=== PATIENT | male | born 1955 | race Caucasian/White ===

== ENCOUNTER 2018-03-30 13:47 | Emergency (ER) | payer BC, MEDICAID, SELFPAY ==
[~2018-03-30] VITALS: Ht 182.9 cm; Wt 79.5 kg
[2018-03-30] MEDS ORDERED: RAMI5CAP57 PO (13:59)
[2018-03-30] MEDS ORDERED: ZOLP10TA PO (13:59)
[2018-03-30] MEDS ORDERED: HYDROCHLOROTH12.5 MG PO (13:59)
[2018-03-30] MEDS ORDERED: GABA300C10 PO (14:00)
[2018-03-30] MEDS ORDERED: DIPH25CA61 PO (14:00)
[2018-03-30] MEDS ORDERED: MELO15TA24 PO (14:01)
[2018-03-30 14:43] LABS: BASOPHILS # (AUTO) 0.05 x10^3/uL (0-0.1); BASOPHILS % (AUTO) 1 % (0-1); EOSINOPHILS # (AUTO) 0.24 x10^3/uL (0-0.4); EOSINOPHILS % (AUTO) 3 % (1-7); LYMPHOCYTES # (AUTO) 1.59 x10^3/uL (1-3.4); LYMPHOCYTES % (AUTO) 16 % (22-44); MD NO; MEAN CORPUSCULAR HEMOGLOBIN 30.9 pg (27.5-34.5); MEAN CORPUSCULAR HGB CONC 34.2 g/dL (33.2-36.2); MEAN CORPUSCULAR VOLUME 90.3 fL (81-97); MEAN PLATELET VOLUME 8.4 fL (7.4-10.4); MONOCYTES # (AUTO) 0.91 x10^3/uL (0.2-0.8); MONOCYTES % (AUTO) 9 % (2-9); NEUTROPHILS # (AUTO) 6.88 x10^3/uL (1.8-6.8); NEUTROPHILS % (AUTO) 71 % (42-75); PLATELET COUNT 312 x10^3/uL (130-400); RED BLOOD COUNT 5.29 x10^6/uL (4.38-5.82); RED CELL DISTRIBUTION WIDTH 13.8 % (9.4-14.8)
[2018-03-30 14:45] LABS: INTERNATIONAL NORMALIZED RATIO 1.01 (0.93-1.1); PROTHROMBIN TIME 10.7 Seconds (9.6-11.5)
[2018-03-30 14:46] LABS: ALBUMIN 4.4 g/dL (3.4-5.0); ANION GAP 6 mmol/L (5-15); CHLORIDE 106 mmol/L (98-107)
[2018-03-30 14:50] LABS: ALANINE AMINOTRANSFERASE 34 U/L (12-78); ALKALINE PHOSPHATASE 87 U/L (45-117); BILIRUBIN,TOTAL 0.4 mg/dL (0.2-1.0); TOTAL PROTEIN 7.7 g/dL (6.4-8.2)
[2018-03-30 15:35] VITALS: BP 156/77
== END 2018-03-30 15:57 | disposition home or self-care (01) ==
LOC: ED 15:40
DX: R21 Rash and other nonspecific skin eruption (principal); I49.3 Ventricular premature depolarization
CPT/HCPCS: 36415; 71045; 80053; 83735; 85025; 85610; 85730; 93005; 99284

== ENCOUNTER 2018-06-11 22:44 | Inpatient (IN) | payer MEDICAID ==
[~2018-06-11] VITALS: Ht 182.9 cm; Wt 82.7 kg
[~2018-06-11 22:44] MED LIST: DIPH25CA61 PO; ESCI20TA10 PO; GABA300C10 PO; HYDROCHLOROTH12.5 MG PO; MELO15TA24 PO; METO25TA35 PO; MORPHINE PO; ONDA4TAB7 PO; RAMI5CAP57 PO; TRAZ-137 PO; ZOLP10TA PO
[2018-06-11] MEDS ORDERED: NITROGLYCERIN 0.4 MG BOTTLE (25 TABS) SL PRN (23:00)
[2018-06-11] MEDS ORDERED: ONDANSETRON 2MG/ML, 2ML IVPush ONE (23:00)
--- NOTE | 2018-06-11 23:05 | NUR ---
bib remsa with c/o on and off substernal chest pressure, nausea, dizziness, poor appetite and diarreha. pt wearing holter monitor x 10 days. per remsa ekg shows pt in and out of trigeminy. monitors applied, siderails up x2, call light within reach.
[2018-06-11] MEDS ORDERED: ONDANSETRON 2MG/ML, 2ML ONE (23:12)
[2018-06-11] MEDS ORDERED: NITROGLYCERIN SINGLE TAB 0.4 MG SL ONE (23:12)
[2018-06-11 23:15] LABS: BASOPHILS # (AUTO) 0.01 x10^3/uL (0-0.1); BASOPHILS % (AUTO) 0 % (0-1); EOSINOPHILS # (AUTO) 0.03 x10^3/uL (0-0.4); EOSINOPHILS % (AUTO) 0 % (1-7); LYMPHOCYTES # (AUTO) 0.95 x10^3/uL (1-3.4); LYMPHOCYTES % (AUTO) 11 % (22-44); MD NO; MEAN CORPUSCULAR HEMOGLOBIN 30.4 pg (27.5-34.5); MEAN CORPUSCULAR HGB CONC 34.7 g/dL (33.2-36.2); MEAN CORPUSCULAR VOLUME 87.4 fL (81-97); MONOCYTES # (AUTO) 0.55 x10^3/uL (0.2-0.8); MONOCYTES % (AUTO) 6 % (2-9); NEUTROPHILS # (AUTO) 7.08 x10^3/uL (1.8-6.8); NEUTROPHILS % (AUTO) 82 % (42-75); PLATELET COUNT 197 x10^3/uL (130-400); RED BLOOD COUNT 5.23 x10^6/uL (4.38-5.82); RED CELL DISTRIBUTION WIDTH 12.4 % (9.4-14.8)
[2018-06-11] MEDS ORDERED: ROSU5TAB PO (23:26)
[2018-06-11 23:27] LABS: ALANINE AMINOTRANSFERASE 24 U/L (12-78); ALBUMIN 3.5 g/dL (3.4-5.0); ANION GAP 8 mmol/L (5-15); CALCIUM 8.5 mg/dL (8.5-10.1); CHLORIDE 106 mmol/L (98-107); CREATININE 0.79 mg/dL (0.7-1.3)
[2018-06-11 23:28] LABS: PROTHROMBIN TIME 10.6 Seconds (9.6-11.5)
[2018-06-11 23:32] LABS: ALKALINE PHOSPHATASE 85 U/L (45-117); BILIRUBIN,TOTAL 0.7 mg/dL (0.2-1.0); TOTAL PROTEIN 7.2 g/dL (6.4-8.2); TROPONIN I < 0.015 ng/mL (0.000-0.045)
--- NOTE | 2018-06-11 23:49 | NUR ---
PT RESTING CALMLY, STATED NAUSEA HAS IMPROVED, DENIES CP AT THIS TIME, MONITORS IN PLACE, CALL LIGHT WITHIN REACH. AWAITING LAB AND XRAY RESULT
--- NOTE | 2018-06-12 00:50 | NUR ---
REPORT CALLED TO THE FLOOR AND PT RTG.
[2018-06-12 01:20] VITALS: BP 177/74
[2018-06-12] MEDS ORDERED: hydrALAzine 20 MG/ML, 1ML IV ONE (01:30)
[2018-06-12] MEDS: ONDANSETRON 2MG/ML, 2ML IVPush PRN ×4 (01:45→19:32)
[2018-06-12] MEDS ORDERED: PANTOPRAZOLE 40 MG IV IVPush ONE (01:47)
[2018-06-12 02:00] VITALS: BP 132/56
[2018-06-12] MEDS ORDERED: IBUPROFEN 600 MG TABLET PO PRN (02:00)
[2018-06-12] MEDS ORDERED: ENALAPRILAT 1.25 MG/ML, 2ML IVPush PRN (02:00)
[2018-06-12] MEDS ORDERED: GABAPENTIN 300 MG CAPSULE PO PRN (02:00)
[2018-06-12] MEDS ORDERED: METOCLOPRAMIDE 5 MG/ML, 2ML IVPush PRN (02:00)
[2018-06-12] MEDS ORDERED: ACETAMINOPHEN 325 MG TABLET PO PRN (02:00)
[2018-06-12] MEDS ORDERED: TRAZODONE 50MG TABLET PO PRN (02:00)
[2018-06-12] MEDS ORDERED: ONDANSETRON 2MG/ML, 2ML IVPush PRN (02:00)
[2018-06-12] MEDS: morphine SULFATE 10 MG/ML, 1ML IVPush PRN ×2 (02:18→19:31)
[2018-06-12] MEDS: SODIUM CHLORIDE 0.9% 1,000 ML IV SCH ×2 (02:34→11:30)
[2018-06-12 05:39] LABS: TROPONIN I < 0.015 ng/mL (0.000-0.045)
[2018-06-12 06:55] VITALS: BP 147/61
[2018-06-12] MEDS: ATORVASTATIN 10 MG TABLET PO SCH (09:00)
[2018-06-12] MEDS: HYDROCHLOROTHIAZIDE 12.5 MG CAPSULE PO SCH (09:00)
[2018-06-12] MEDS: RAMIPRIL 2.5 MG CAPSULE PO SCH (09:00)
[2018-06-12] MEDS ORDERED: ESCITALOPRAM OXALATE PO SCH (09:00)
[2018-06-12] MEDS: PANTOPRAZOLE 40 MG IV IVPush SCH (09:29)
[2018-06-12 14:10] VITALS: BP 154/83
[2018-06-12] MEDS ORDERED: PROCHLORPERAZINE 5 MG/ML, 2ML IM PRN (17:00)
[2018-06-12] MEDS: POTASSIUM CHLORIDE 20 MEQ in D5%-0.45% NACL 1,000 ML IV SCH (17:17)
[2018-06-12 18:53] VITALS: BP 128/69
[2018-06-12] MEDS ORDERED: PROCHLORPERAZINE 5 MG/ML, 2ML IV PRN (20:00)
[2018-06-13] MEDS: POTASSIUM CHLORIDE 20 MEQ in D5%-0.45% NACL 1,000 ML IV SCH (02:29)
[2018-06-13 04:24] VITALS: BP 151/79
[2018-06-13 07:43] VITALS: BP 130/74
[2018-06-13 08:00] LABS: BASOPHILS # (AUTO) 0.04 x10^3/uL (0-0.1); BASOPHILS % (AUTO) 0 % (0-1); EOSINOPHILS # (AUTO) 0.09 x10^3/uL (0-0.4); EOSINOPHILS % (AUTO) 1 % (1-7); LYMPHOCYTES # (AUTO) 1.55 x10^3/uL (1-3.4); LYMPHOCYTES % (AUTO) 15 % (22-44); MD NO; MEAN CORPUSCULAR HEMOGLOBIN 29.8 pg (27.5-34.5); MEAN CORPUSCULAR HGB CONC 33.5 g/dL (33.2-36.2); MEAN CORPUSCULAR VOLUME 88.9 fL (81-97); MEAN PLATELET VOLUME 9.2 fL (7.4-10.4); MONOCYTES # (AUTO) 1.06 x10^3/uL (0.2-0.8); MONOCYTES % (AUTO) 11 % (2-9); NEUTROPHILS # (AUTO) 7.36 x10^3/uL (1.8-6.8); NEUTROPHILS % (AUTO) 73 % (42-75); PLATELET COUNT 198 x10^3/uL (130-400); RED BLOOD COUNT 5.18 x10^6/uL (4.38-5.82); RED CELL DISTRIBUTION WIDTH 12.7 % (9.4-14.8)
[2018-06-13 08:10] LABS: ANION GAP 4 mmol/L (5-15); CALCIUM 8.3 mg/dL (8.5-10.1); CHLORIDE 110 mmol/L (98-107)
[2018-06-13] MEDS: PANTOPRAZOLE 40 MG IV IVPush SCH (08:38)
[2018-06-13] MEDS: morphine SULFATE 10 MG/ML, 1ML IVPush PRN (08:49)
[2018-06-13] MEDS: ONDANSETRON 2MG/ML, 2ML IVPush PRN ×2 (08:49→14:28)
[2018-06-13] MEDS: RAMIPRIL 2.5 MG CAPSULE PO SCH ×2 (08:50→14:35)
[2018-06-13] MEDS: ATORVASTATIN 10 MG TABLET PO SCH (08:50)
[2018-06-13] MEDS: HYDROCHLOROTHIAZIDE 12.5 MG CAPSULE PO SCH (08:51)
[2018-06-13] MEDS ORDERED: CITALOPRAM 20 MG TABLET PO SCH (09:00)
[2018-06-13] MEDS ORDERED: IBUPROFEN 600 MG TABLET PO PRN (11:25)
[2018-06-13] MEDS ORDERED: BUTALB/APAP/CAFFEINE 50MG/325MG/40MG PO PRN (11:30)
[2018-06-13] MEDS ORDERED: KETOROLAC 30 MG/1 ML IM PRN (11:30)
[2018-06-13 14:23] VITALS: BP 153/55
[2018-06-13 14:51] VITALS: BP 131/64
[2018-06-13] MEDS ORDERED: ONDA4VIA8 PO (16:50)
[2018-06-13] MEDS ORDERED: KETOROLAC 30 MG/1 ML IM/IV PRN (17:30)
[2018-06-13] MEDS ORDERED: ONDA4TAB13 PO (18:07)
[2018-06-13] MEDS ORDERED: ASPI1TAB31 PO (18:09)
== END 2018-06-13 18:26 | disposition home or self-care (01) | DRG 311 ==
LOC: ED 22:55 → EDIP 06-12 00:03 → 5SO 06-12 01:06
PROVIDERS: ADMIT Family Medicine; ATTEND Family Medicine
DX: I24.8 Other forms of acute ischemic heart disease (principal); E86.0 Dehydration; I11.9 Hypertensive heart disease without heart failure; K30 Functional dyspepsia; I45.81 Long QT syndrome; Z88.0 Allergy status to penicillin; Z87.891 Personal history of nicotine dependence
CPT/HCPCS: 36415; 71045; 80048; 80053; 83735; 84484; 85025; 85610; 85730; 93005; 93306; 96374; 96375; 99285; G0378; J1885; J2405; J3480; C9113; J0360; J0780; J2270; J7030